=== PATIENT | male | born 1945 | race Caucasian/White ===

== ENCOUNTER 2018-06-17 08:24 | Emergency (ER) | payer MEDICARE ==
[2018-06-17] MEDS ORDERED: Sodium Chloride 0.9% 10 ML Syringe FLUSH PRN ×2 (09:14→10:55)
[2018-06-17] MEDS ORDERED: Sodium Chloride 0.9% 1,000 ML IV SCH (09:15)
[2018-06-17] MEDS ORDERED: Ketorolac 30 MG/ML SDV IVPUSH ONE (09:15)
[2018-06-17] MEDS ORDERED: HYDROmorphone 0.5 MG/0.5 ML SYRINGE IVPUSH ONE (09:16)
--- NOTE | 2018-06-17 10:46 | EDM.PDOC ---
ED HPI GENERAL MEDICAL PROBLEM - General Chief Complaint: Flank Pain Stated Complaint: ABDOMINAL PAIN Time Seen by Provider: 06/17/18 08:44 Source of Information: Reports: Patient History Limitations: Reports: No Limitations - History of Present Illness INITIAL COMMENTS - FREE TEXT/NARRATIVE: The patient presents with right flank pain. This started on Monday. He did not injure himself. He says the pain radiates down into the right abdomen. He has no nausea, vomiting, dysuria or hematuria. He has no history of kidney stones. He has no fever, chills, cough, chest pain or shortness of breath. He says it does hurt more when he moves, takes a deep breath or laughs. He has no history of DVT or PE. He has no swelling or pain is his legs. He has no history of heart problems. He is currently being treated for hypertension. He had shingles months ago and after that his blood pressure was elevated. Onset: Gradual Duration: Day(s): (2) Quality: Reports: Sharp Severity: Moderate Improves with: Reports: Immobilization Worsens with: Reports: Movement Associated Symptoms: Reports: No Other Symptoms Right Flank Pain Score (Numeric/FACES): 5 - Related Data Allergies Allergy/AdvReac Type Severity Reaction Status Date / Time gabapentin Allergy Other Verified 06/17/18 08:48 oxycodone Allergy Cannot Verified 06/17/18 08:48 Remember Penicillins Allergy Cannot Verified 06/17/18 08:48 Remember Sulfa (Sulfonamide Allergy Cannot Verified 06/17/18 08:48 Antibiotics) Remember Home Meds: Home Meds Aspirin [Halfprin] 81 mg PO ASDIRECTED 06/17/18 [History] Folic Acid 1 mg PO DAILY 06/17/18 [History] Losartan [Cozaar] 25 mg PO DAILY 06/17/18 [History] Omeprazole 20 mg PO BID 06/17/18 [History] Rivaroxaban [Xarelto] 15 mg PO BID #42 tablet 06/17/18 [Rx] Simvastatin [Zocor] 20 mg PO BEDTIME 06/17/18 [History] Past Medical History HEENT History: Reports: Impaired Vision Cardiovascular History: Reports: Hypertension Genitourinary History: Reports: Other (See Below) Other Genitourinary History: testicular torsion Oncologic (Cancer) History: Reports: Basal Cell Carcinoma - Past Surgical History HEENT Surgical History: Reports: Tonsillectomy Social & Family History - Tobacco Use Smoking Status *Q: Never Smoker - Caffeine Use Caffeine Use: Reports: Other Other Caffeine Use: dark chocolate - Recreational Drug Use Recreational Drug Use: No ED ROS GENERAL - Review of Systems Review Of Systems: See Below Constitutional: Reports: No Symptoms HEENT: Reports: No Symptoms Respiratory: Reports: No Symptoms Cardiovascular: Reports: No Symptoms Endocrine: Reports: No Symptoms GI/Abdominal: Reports: Abdominal Pain (Right side radiating from his right flank ) : Reports: Flank Pain (Right) Musculoskeletal: Reports: Back Pain (Right flank) ED EXAM,LOWER BACK PAIN/INJURY - Physical Exam Exam: See Below Exam Limited By: No Limitations General Appearance: Alert, No Apparent Distress Ears: Normal External Exam Nose: Normal Inspection Head: Atraumatic, Normocephalic Neck: Normal Inspection Respiratory/Chest: No Respiratory Distress, Lungs Clear, Normal Breath Sounds Cardiovascular: Regular Rate, Rhythm, No Edema, No Murmur GI/Abdominal: Soft, Non-Tender, No Organomegaly, No Mass Back Exam: CVA Tenderness (R) (Moderate tenderness) Extremities: Normal Inspection Course - Vital Signs Last Recorded V/S: Last Vital Signs Temp 97.9 F 06/17/18 08:43 Pulse 57 L 06/17/18 08:43 Resp 20 06/17/18 08:43 BP 135/84 06/17/18 08:43 Pulse Ox 99 06/17/18 08:43 - Orders/Labs/Meds Orders: Active Orders 24 hr Category Date Time Status Peripheral IV Care [RC] . DIRECTED Care 06/17/18 09:15 Active UA W/MICROSCOPIC [URIN] Stat Lab 06/17/18 08:52 Ordered Sodium Chloride 0.9% [Normal Saline] 1,000 ml Med 06/17/18 09:15 Active IV ASDIRECTED Sodium Chloride 0.9% [Normal Saline] 100 ml Med 06/17/18 11:00 Active IV ASDIRECTED Sodium Chloride 0.9% [Saline Flush] Med 06/17/18 09:14 Active 10 ml FLUSH ASDIRECTED PRN Sodium Chloride 0.9% [Saline Flush] Med 06/17/18 10:55 Active 10 ml FLUSH ONETIME PRN Peripheral IV Insertion Adult [OM.PC] Stat Oth 06/17/18 09:14 Ordered Medication Orders Sodium Chloride (Normal Saline) 1,000 mls @ 125 mls/hr IV ASDIRECTED NALINI Last Admin: 06/17/18 09:27 Dose: 125 mls/hr Sodium Chloride (Normal Saline) 100 mls @ 75 mls/hr IV ASDIRECTED NALINI Last Admin: 06/17/18 11:19 Dose: 75 mls/hr Sodium Chloride (Saline Flush) 10 ml FLUSH ASDIRECTED PRN PRN Reason: Keep Vein Open Last Admin: 06/17/18 09:27 Dose: 10 ml Sodium Chloride (Saline Flush) 10 ml FLUSH ONETIME PRN PRN Reason: IV FLUSH Last Admin: 06/17/18 11:20 Dose: 10 ml Labs: Laboratory Tests 06/17/18 06/17/18 06/17/18 Range/Units 08:50 08:50 08:50 WBC 10.63 H (4.23-9.07) K/mm3 RBC 4.43 L (4.63-6.08) M/mm3 Hgb 12.9 L (13.7-17.5) gm/L Hct 39.5 L (40.1-51.0) % MCV 89.2 (79.0-92.2) fl MCH 29.1 (25.7-32.2) pg MCHC 32.7 (32.2-35.5) g/dl RDW Std Deviation 41.5 (35.1-43.9) fL Plt Count 151 L (163-337) K/mm3 MPV 10.3 (9.4-12.3) fl Neut % (Auto) 80.8 H (34.0-67.9) % Lymph % (Auto) 6.3 L (21.8-53.1) % Stanley % (Auto) 11.6 (5.3-12.2) % Eos % (Auto) 1.0 (0.8-7.0) Baso % (Auto) 0.1 (0.1-1.2) % Neut # (Auto) 8.59 H (1.78-5.38) K/mm3 Lymph # (Auto) 0.67 L (1.32-3.57) K/mm3 Stanley # (Auto) 1.23 H (0.30-0.82) K/mm3 Eos # (Auto) 0.11 (0.04-0.54) K/mm3 Baso # (Auto) 0.01 (0.01-0.08) K/mm3 Manual Slide Review Abnormal smear D-Dimer, Quantitative 0.97 H (0.19-0.50) mg/L Sodium 133 L (136-145) mEq/L Potassium 4.2 (3.5-5.1) mEq/L Chloride 98 (98-107) mEq/L Carbon Dioxide 26 (21-32) mEq/L Anion Gap 13.2 (5-15) BUN 14 (7-18) mg/dL Creatinine 1.1 (0.7-1.3) mg/dL Est Cr Clr Drug Dosing 65.65 mL/min Estimated GFR (MDRD) > 60 (>60) mL/min BUN/Creatinine Ratio 12.7 L (14-18) Glucose 118 H (83-115) mg/dL Calcium 9.0 (8.5-10.1) mg/dL Total Bilirubin 0.8 (0.2-1.0) mg/dL AST 18 (15-37) U/L ALT 14 L (16-63) U/L Alkaline Phosphatase 78 (46-116) U/L Total Protein 7.4 (6.4-8.2) g/dl Albumin 3.7 (3.4-5.0) g/dl Globulin 3.7 gm/dL Albumin/Globulin Ratio 1.0 (1-2) Urine Color (Yellow) Urine Appearance (Clear) Urine pH (5.0-8.0) Ur Specific [place] (1.005-1.030) Urine Protein (Negative) Urine Glucose (UA) (Negative) Urine Ketones (Negative) Urine Occult Blood (Negative) Urine Nitrite (Negative) Urine Bilirubin (Negative) Urine Urobilinogen (0.2-1.0) Ur Leukocyte Esterase (Negative) Urine RBC (0-5) /hpf Urine WBC (0-5) /hpf Ur Epithelial Cells (0-5) /hpf Urine Bacteria (FEW) /hpf Urine Mucus (FEW) /hpf 06/17/18 Range/Units 08:52 WBC (4.23-9.07) K/mm3 RBC (4.63-6.08) M/mm3 Hgb (13.7-17.5) gm/L Hct (40.1-51.0) % MCV (79.0-92.2) fl MCH (25.7-32.2) pg MCHC (32.2-35.5) g/dl RDW Std Deviation (35.1-43.9) fL Plt Count (163-337) K/mm3 MPV (9.4-12.3) fl Neut % (Auto) (34.0-67.9) % Lymph % (Auto) (21.8-53.1) % Stanley % (Auto) (5.3-12.2) % Eos % (Auto) (0.8-7.0) Baso % (Auto) (0.1-1.2) % Neut # (Auto) (1.78-5.38) K/mm3 Lymph # (Auto) (1.32-3.57) K/mm3 Stanley # (Auto) (0.30-0.82) K/mm3 Eos # (Auto) (0.04-0.54) K/mm3 Baso # (Auto) (0.01-0.08) K/mm3 Manual Slide Review D-Dimer, Quantitative (0.19-0.50) mg/L Sodium (136-145) mEq/L Potassium (3.5-5.1) mEq/L Chloride (98-107) mEq/L Carbon Dioxide (21-32) mEq/L Anion Gap (5-15) BUN (7-18) mg/dL Creatinine (0.7-1.3) mg/dL Est Cr Clr Drug Dosing mL/min Estimated GFR (MDRD) (>60) mL/min BUN/Creatinine Ratio (14-18) Glucose (83-115) mg/dL Calcium (8.5-10.1) mg/dL Total Bilirubin (0.2-1.0) mg/dL AST (15-37) U/L ALT (16-63) U/L Alkaline Phosphatase (46-116) U/L Total Protein (6.4-8.2) g/dl Albumin (3.4-5.0) g/dl Globulin gm/dL Albumin/Globulin Ratio (1-2) Urine Color Dark yellow (Yellow) Urine Appearance Clear (Clear) Urine pH 7.0 (5.0-8.0) Ur Specific [place] > or = 1.030 (1.005-1.030) Urine Protein 1+ H (Negative) Urine Glucose (UA) Negative (Negative) Urine Ketones Negative (Negative) Urine Occult Blood Negative (Negative) Urine Nitrite Negative (Negative) Urine Bilirubin 1+ H (Negative) Urine Urobilinogen 2.0 H (0.2-1.0) Ur Leukocyte Esterase Negative (Negative) Urine RBC Not seen (0-5) /hpf Urine WBC Not seen (0-5) /hpf Ur Epithelial Cells 0-5 (0-5) /hpf Urine Bacteria Not seen (FEW) /hpf Urine Mucus Not seen (FEW) /hpf Meds: Medications Generic Name Dose Route Start Last Admin Trade Name Freq PRN Reason Stop Dose Admin Sodium Chloride 1,000 mls @ 125 mls/hr 06/17/18 09:15 06/17/18 09:27 Normal Saline IV 125 mls/hr ASDIRECTED NALINI Administration Sodium Chloride 100 mls @ 75 mls/hr 06/17/18 11:00 06/17/18 11:19 Normal Saline IV 75 mls/hr ASDIRECTED NALINI Administration Sodium Chloride 10 ml 06/17/18 09:14 06/17/18 09:27 Saline Flush FLUSH 10 ml ASDIRECTED PRN Administration Keep Vein Open Sodium Chloride 10 ml 06/17/18 10:55 06/17/18 11:20 Saline Flush FLUSH 10 ml ONETIME PRN Administration IV FLUSH Discontinued Medications Generic Name Dose Route Start Last Admin Trade Name Freq PRN Reason Stop Dose Admin Hydromorphone HCl 0.5 mg 06/17/18 09:16 06/17/18 10:01 Dilaudid IVPUSH 06/17/18 09:17 0.5 mg ONETIME ONE Administration Iopamidol 100 ml 06/17/18 10:55 06/17/18 11:19 Isovue-370 (76%) IVPUSH 06/17/18 10:56 100 ml ONETIME ONE Administration Ketorolac Tromethamine 30 mg 06/17/18 09:15 06/17/18 09:27 Toradol IVPUSH 06/17/18 09:16 30 mg ONETIME ONE Administration Rivaroxaban 15 mg 06/17/18 12:30 Xarelto PO 06/17/18 12:31 ONETIME ONE - Re-Assessments/Exams Free Text/Narrative Re-Assessment/Exam: 06/17/18 10:48 I ordered an IV NS at 125mL/hr, toradol 30mg IV, dilaudid 0.5mg IV, labs, UA and a CT of his abdomen and pelvis without contrast to look for a kidney stone. 06/17/18 10:51 His WBC was elevated at 10.63. His D-dimer was elevated at 0.97. His Na was low at 133. His glucose was 118. His UA shows no UTI. I looked at his CT and it shows no stones from what I could see but he has a pleural effusion with possible pneumonia on the right side. His D-dimer is also elevated so I ordered a CT angio of his chest. 06/17/18 12:[address] of his abdomen and pelvis without contrast shows small right-sided pleural effusion. Increased density within both lung bases worse on the right side most likely due to fibrosis but please correlate that patient has no acute infectious symptoms for this to indicate pneumonia. No renal calculi, ureteral dilatation or ureteral stone is seen. Increase stool within the colon and other incidental findings. I am concerned he may have something more such as a PE. I ordered a CT angio of his chest shows pulmonary embolism. Increased density within both lung bases, worse on the right side, which is felt to represent a combination of fibrosis and atelectasis. Small right-sided pleural effusion. He has a PE. I ordered xarelto 15mg by mouth. Departure - Departure Time of Disposition: 13:00 Disposition: Home, Self-Care 01 Condition: Good Clinical Impression: Pulmonary embolism Qualifiers: Pulmonary embolism type: other Chronicity: acute Acute cor pulmonale presence: without acute cor pulmonale Qualified Code(s): I26.99 - Other pulmonary embolism without acute cor pulmonale - Discharge Information *PRESCRIPTION DRUG MONITORING PROGRAM REVIEWED*: Not Applicable *COPY OF PRESCRIPTION DRUG MONITORING REPORT IN PATIENT SARINA: Not Applicable Prescriptions: Rivaroxaban [Xarelto] 15 mg PO BID #42 tablet Referrals: PCP,Not In Area [Primary Care Provider] - Forms: ED Department Discharge Additional Instructions: Take the xarelto 15mg 2 times per day with food for 21 days and then 20mg daily. When you drive home, get out and walk around every 2 hours. Take motrin or tylenol for the pain. Please return if you are worse such as more shortness of breath, pain or confusion. Stop taking the aspirin while take xarelto. - My Orders Last 24 Hours: My Active Orders 06/17/18 08:52 UA W/MICROSCOPIC [URIN] Stat 06/17/18 09:14 Sodium Chloride 0.9% [Saline Flush] 10 ml FLUSH ASDIRECTED PRN Peripheral IV Insertion Adult [OM.PC] Stat 06/17/18 09:15 Peripheral IV Care [RC] . DIRECTED Sodium Chloride 0.9% [Normal Saline] 1,000 ml IV ASDIRECTED 06/17/18 10:55 Sodium Chloride 0.9% [Saline Flush] 10 ml FLUSH ONETIME PRN 06/17/18 11:00 Sodium Chloride 0.9% [Normal Saline] 100 ml IV ASDIRECTED - Assessment/Plan Last 24 Hours: My Active Orders 06/17/18 08:52 UA W/MICROSCOPIC [URIN] Stat 06/17/18 09:14 Sodium Chloride 0.9% [Saline Flush] 10 ml FLUSH ASDIRECTED PRN Peripheral IV Insertion Adult [OM.PC] Stat 06/17/18 09:15 Peripheral IV Care [RC] . DIRECTED Sodium Chloride 0.9% [Normal Saline] 1,000 ml IV ASDIRECTED 06/17/18 10:55 Sodium Chloride 0.9% [Saline Flush] 10 ml FLUSH ONETIME PRN 06/17/18 11:00 Sodium Chloride 0.9% [Normal Saline] 100 ml IV ASDIRECTED
[2018-06-17] MEDS ORDERED: Iopamidol 755 Mg/ML 100 ML Bottle IVPUSH ONE (10:55)
[2018-06-17] MEDS ORDERED: Sodium Chloride 0.9% 100 ML IV SCH (11:00)
--- NOTE | 2018-06-17 11:01 | CT ---
CT abdomen and pelvis Technique: Multiple axial sections were obtained from above the dome of the diaphragm inferiorly through the pubic symphysis. Intravenous and oral contrast was not utilized. Study has been performed as a ureteral stone protocol. Comparison: No previous CT exam is available. Findings: Kidneys show no abnormal calcifications. Collecting systems of both kidneys show no dilatation. Right and left ureters show no dilatation. No abnormal calcifications are seen along the course of the ureters. Small right-sided pleural effusion is seen. Increased parenchymal density noted within both lung bases worse on the right side which is most likely due to scarring if patient has no acute infectious symptoms to indicate pneumonia. Noncontrast appearance of the liver and spleen appears within normal limits. Heart is slightly enlarged. Adrenal glands show no nodule. Pancreas is within normal limits. Gallbladder contains no calcified gallstones. Aorta shows atherosclerotic calcification which continues into the iliac vessels. No aneurysm is seen. No retroperitoneal adenopathy or mesenteric abnormalities are seen. No pelvic mass or adenopathy is seen. No free fluid or inflammatory change is seen. Mild increased stool noted throughout the colon. Appendix is not definitely visualized. Bone window settings were reviewed which appears within normal limits for the patient's age. Impression: 1. Small right-sided pleural effusion. Increased density within both lung bases worse on the right side most likely due to fibrosis but please correlate that patient has no acute infectious symptoms for this to indicate pneumonia. 2. No renal calculi, ureteral dilatation or ureteral stone is seen. 3. Increased stool within the colon and other incidental findings. Diagnostic code #3
--- NOTE | 2018-06-17 11:51 | CT ---
CT chest Technique: Multiple axial sections were obtained from above the lung apices inferiorly through the lung bases. Intravenous contrast was utilized. Study has been performed as a pulmonary angiogram protocol. Findings: Filling defects are seen within the subsegmental branches of the right lower lung compatible with pulmonary emboli. No pulmonary emboli are seen within the main pulmonary arteries. Coronary artery calcification is seen. Aorta shows no aneurysmal dilatation dilatation. No mediastinal or hilar adenopathy is seen. No pericardial effusion is seen. No evidence of right ventricular strain. Small portion of the visualized upper abdominal structures appear within normal limits. Small right sided pleural effusion is seen. Parenchymal densities are seen within both lungs worse on the right side which has mostly the appearance of fibrosis although mild superimposed atelectasis is also felt to be present. Upper lungs are clear. Bone window settings shows mild degenerative spurring within the spine. Impression: 1. Pulmonary embolism as noted above. 2. Increased density within both lung bases, worse on the right side, which is felt to represent a combination of fibrosis and atelectasis. 3. Small right-sided pleural effusion. Diagnostic code #5
[2018-06-17] MEDS ORDERED: Rivaroxaban 10 MG Tab PO ONE (12:30)
== END 2018-06-17 15:13 | disposition home or self-care (01) ==
LOC: JD.ED 08:24
DX: I26.99 Other pulmonary embolism without acute cor pulmonale (principal); I10 Essential (primary) hypertension; Z88.5 Allergy status to narcotic agent; Z88.8 Allergy status to other drugs, medicaments and biological substances; Z88.0 Allergy status to penicillin; Z88.2 Allergy status to sulfonamides; Z79.899 Other long term (current) drug therapy; Z79.82 Long term (current) use of aspirin
CPT/HCPCS: 36415; 71275; 74176; 80053; 81001; 85025; 85379; 96361; 96374; 96375; 99284; A9270; J1170; J1885; J7030; J7040; J7050; Q9967